=== PATIENT | female | born 1975 | race Caucasian/White ===

== ENCOUNTER 2020-11-19 10:55 | Emergency (ER) | payer OTHER, SELFPAY ==
[2020-11-19 11:13] VITALS: BP 131/101; PULSE 69; RESP 18; TEMP 36.4; O2SAT 99; BMI 35.4
--- NOTE | 2020-11-19 11:21 | PC.NURSE ---
Pt fully triaged, a/o x 4, neuro intact. States she feels reassured by vital signs and will go home. Encouraged to f/u as needed and indicated adn return for any needs, concerns. worsening of symptoms.
== END 2020-11-19 11:19 | disposition left against medical advice (07) ==
PROVIDERS: Emergency Provider Emergency Medicine
CPT/HCPCS: 99281